=== PATIENT | female | born 1945 | race African-American/Black ===

== ENCOUNTER 2017-09-19 16:24 | Observation (INO) | payer MEDICARE, BC ==
[~2017-09-19 16:24] MED LIST: ISOVUE-370 76%-LOCM 1 ML ONE
[2017-09-19] MEDS ORDERED: Fentanyl 100 MCG/2 ML VIAL ONE (19:30)
--- NOTE | 2017-09-19 20:35 | RAD ---
THREE VIEWS LEFT ANKLE: Indication: Fall with ankle pain. Comparison: None. FINDINGS: No acute fracture or subluxation is evident. Ankle mortise and talar dome are preserved. There is dif fuse osteopenia. IMPRESSION: No acute osseous abnormality. POS: [facility]
--- NOTE | 2017-09-19 20:43 | RAD ---
TWO VIEWS LEFT FORELEG: Indication: Fall with left leg pain. FINDINGS: No acute fracture or subluxation is evident. There is partial visualization of left total knee replac ement. Soft tissues are normal appearing. IMPRESSION: No acute osseous abnormality. POS: [facility]
--- NOTE | 2017-09-19 20:46 | RAD ---
TWO VIEWS LEFT HIP: Indication: Fall on Tuesday. FINDINGS: No acute fracture or subluxation is evident. Enthesopathic changes are seen of the greater trochanter . There are vascular calcifications within the adjacent soft tissues. IMPRESSION: No acute osseous abnormality. POS: [facility]
--- NOTE | 2017-09-19 21:04 | CT ---
CT BRAIN WITHOUT CONTRAST: Indication: Fall, possible loss of consciousness. Comparison: None. FINDINGS: Skull and extracranial soft tissues appear within normal limits. No acute infarct, hemorrhage, or hyd rocephalus is present. Central pellucidum and third ventricle are midline. The mastoid air cells are paranasal sinuses are clear. IMPRESSION: No acute abnormality. POS: [facility]
--- NOTE | 2017-09-19 21:10 | CT ---
NONCONTRAST CT OF THE ABDOMEN AND PELVIS: Indication: Fall with back pain, and left hip pain. FINDINGS: Lack of IV contrast limits evaluation for solid organ injury. There are renal vascular calcifications bilaterally. There are scattered vascular calcifications along the abdominal and pelvic vasculature. Unopacified spleen, pancreas, adrenal glands, and kidneys are within normal limits. No free fluid is evident. No definite acute fracture or subluxation is evident. There is diffuse osteopenia. Scattered degenera tive and osteoarthritic change. Injection granuloma in the left gluteal region. IMPRESSION: No acute abnormality demonstrated within the limitations of this noncontrast examination. POS: [facility]ESSICA
[2017-09-19 22:51] LABS: PTT 26.6 SEC (22.9-36.1)
[2017-09-19 22:52] LABS: D-Dimer Test 0.58 *mcg/mL (0.27-0.43)
[2017-09-19 23:05] LABS: ALT (SGPT) 16 U/L (8-55); AST (SGOT) 25 U/L (5-34); Albumin 4.5 g/dL (3.4-4.8); Alkaline Phosphatase 87 U/L (40-150); Anion Gap 22 mmol/L (10-20); BUN (Urea Nitrogen) 41 mg/dL (9.8-20.1); Bilirubin, Total 1.3 mg/dL (0.2-1.2); CK (CPK) 462 U/L (29-168); Calc. Creatinine Clearance 0 mL/min (70-130); Calcium 9.8 mg/dL (7.8-10.44); Carbon Dioxide 22 mmol/L (23-31); Chloride 101 mmol/L (98-107); Estimated GFR-MDRD 43; Globulin 2.2 g/dL (2.4-3.5); Glucose 169 mg/dL (83-110); Protein, Total 6.7 g/dL (6.0-8.3); Sodium 142 mmol/L (136-145)
[2017-09-19 23:08] LABS: Band 1 % (5-11); Hemoglobin 11.8 g/dL (12.0-16.0); Lymphocytes 37 % (21-51); MDiff Complete? YES; Mean Corpuscular HGB CONC 32.7 g/dL (32.0-36.0); Mean Corpuscular Hemoglobin 30.4 pg (27.0-31.0); Mean Corpuscular Volume 93.1 fl (81.0-99.0); Mean Platelet Volume 7.5 fL (7.4-10.4); Monocytes 4 % (0-10); Neutrophil 58 % (42-75); PLT Morphology Comment Appears Adequate; Platelet Count 202 thou/uL (130-400); RBC Distribution Width 13.3 % (11.5-14.5); Red Blood Cell (RBC) Count 3.87 mill/uL (4.20-5.40); White Blood Cell (WBC) Count 10.3 thou/uL (4.8-10.8)
[2017-09-19 23:09] LABS: CKMB 4.9 ng/mL (0-6.6); Troponin I 0.021 ng/mL (< 0.028)
[2017-09-19 23:13] LABS: Potassium 2.9 mmol/L (3.5-5.1)
--- NOTE | 2017-09-19 23:31 | CT ---
CT OF THE THORAX WITH IV CONTRAST: Indication: History of chest pain after a fall. FINDINGS: No contusion, pleural effusion, or pneumothorax is evident. There are scattered vascular calcifications in the wall of the thoracic aorta and coronary arteries. There is a left chest wall port in place. Visualized upper abdomen is unremarkable. No acute osseous abnormality is evident. IMPRESSION: No acute abnormality. POS: [facility]
[2017-09-19] MEDS ORDERED: Potassium Chloride 20 MEQ/100 ML PREMIX BAG ONE (23:33)
[2017-09-20] LABS: Bicarbonate (HCO3v) 23.4 mmol/L (1.0-85.0); CO2 Tension (PvCO2) 41.2 mmHg (41.0-51.0); Calcium, Ionized 0.97 mmol/L (1.12-1.32); Hemoglobin - Calc 11.3 g/dL (12.0-18.0); O2 Tension (PvO2) 41.5 mmHg (35.0-45.0); Potassium 2.9 mmol/L (3.4-4.7); T. Carbon Dioxide 24.6 mmol/L (1.0-85.0); pH (Venous) 7.361 (7.35-7.45); vO2 Saturation-calc 74.9 % (0.0-100.0)
[2017-09-20] MEDS ORDERED: Morphine 4 MG/ML VIAL ONE ×2 (00:50→09:39)
[2017-09-20] MEDS ORDERED: Potassium Chloride 20 MEQ TAB ONE (00:50)
[2017-09-20] MEDS ORDERED: Dextrose 5% in Water 1,000 ML IV PRN (01:06)
[2017-09-20] MEDS ORDERED: HumaLOG 300 UNITS/3 ML VIAL SC PRN (01:06)
[2017-09-20] MEDS ORDERED: Dextrose 50% Abboject 50 ML SYRINGE SLOW IVP PRN (01:06)
[2017-09-20] MEDS ORDERED: Ondansetron HCl/PF 4 MG/2 ML Vial IVP PRN (01:06)
[2017-09-20] MEDS ORDERED: HYDROcodone/Acetaminophen 5/325 mg Tablet PO PRN (01:06)
[2017-09-20] MEDS ORDERED: Ondansetron ODT 4 MG TAB PO PRN (01:06)
[2017-09-20] MEDS ORDERED: Acetaminophen 325 MG TAB PO PRN (01:06)
[2017-09-20] MEDS ORDERED: Lorazepam 2 MG/ML VIAL SLOW IVP PRN (01:12)
[2017-09-20] MEDS ORDERED: Cyclobenzaprine 10 MG TAB PO PRN (01:12)
[2017-09-20] MEDS ORDERED: Morphine 4 MG/ML VIAL SLOW IVP PRN (01:13)
[2017-09-20] MEDS ORDERED: Albuterol Sulfate 2.5 mg/3 ml Neb NEB PRN (01:13)
[2017-09-20] MEDS ORDERED: Lorazepam 2 MG/ML VIAL SLOW IVP SCH (01:15)
[2017-09-20] MEDS ORDERED: Enoxaparin Sodium 30 MG/0.3 ML SYRINGE SC SCH ×2 (02:00→21:00)
[2017-09-20] MEDS ORDERED: Insulin Detemir 100 UNITS/ML 50 UNITS in Pre-Filled Syringe 1 EACH SC SCH (02:00)
[2017-09-20] MEDS ORDERED: Cyclobenzaprine 10 MG TAB PO SCH (02:00)
[2017-09-20 05:03] LABS: Anion Gap 13 mmol/L (10-20); BUN (Urea Nitrogen) 34 mg/dL (9.8-20.1); Calc. Creatinine Clearance 0 mL/min (70-130); Calcium 9.3 mg/dL (7.8-10.44); Carbon Dioxide 26 mmol/L (23-31); Chloride 102 mmol/L (98-107); Estimated GFR-MDRD 62; Glucose 165 mg/dL (83-110); Magnesium 1.7 mg/dL (1.6-2.6); Potassium 3.4 mmol/L (3.5-5.1); Sodium 138 mmol/L (136-145)
[2017-09-20 05:13] LABS: Hemoglobin 11.3 g/dL (12.0-16.0); Lymphocytes 51 % (21-51); MDiff Complete? YES; Mean Corpuscular HGB CONC 32.7 g/dL (32.0-36.0); Mean Corpuscular Hemoglobin 30.3 pg (27.0-31.0); Mean Corpuscular Volume 92.6 fl (81.0-99.0); Mean Platelet Volume 7.9 fL (7.4-10.4); Monocytes 8 % (0-10); Neutrophil 41 % (42-75); PLT Morphology Comment Appears Adequate; Platelet Count 195 thou/uL (130-400); RBC Distribution Width 13.3 % (11.5-14.5); Red Blood Cell (RBC) Count 3.73 mill/uL (4.20-5.40); White Blood Cell (WBC) Count 8.1 thou/uL (4.8-10.8)
--- NOTE | 2017-09-20 06:14 | HP ---
DATE OF ADMISSION: 09/19/2017 TIME OF SERVICE: 2355 hours. PRIMARY CARE PHYSICIAN: Shawna Christianson CHIEF COMPLAINT: "I cannot walk." HISTORY OF PRESENT ILLNESS: Ms. Davis is a 72-year-old -[place]ux[place] female with history of diabetes, CLL, hypertension, hyperlipidemia who presents to the emergency department today due to leg pain, inability to walk. She is told the story that she fell on 09/11/2017, at work. She was walking and slipped. Initially, she felt fine and was able to walk the rest of the day. She denied any loss of consciousness, syncope, and presyncope. No palpitations, chest pain or shortness of breath prior to that episode. After the fall, the next day on 09/12/2017, the patient was unable to walk. She had a severe shooting pain into her left leg and hurt too much to move. She had a headache that seemed to resolve in the next several days. She was unable to walk and lives alone and therefore stayed in bed for the next 3 days. She says she was crying out for help and hoping that someone would hear her and take her to get help. She was not near the phone, near the refrigerator, near food and water, so she was not eating or drinking. She finally got a hold of the family member and they came by to check on her, she was taken to [facility] in [place], she was evaluated and sent home with pain control and was still having problems and unable to walk. She was taken to the next day over to the [facility] in [place] where it appears the same. In review of the chart, I do not see any visits to regional clinic on those dates. In any event today, she was brought by family member to her emergency department for evaluation. She is still unable to walk. She still has severe sharp pain into her left leg. She has chronic back pain. Per the note, she complained of left lower extremity, back, left leg, and posterior neck pain. She denies any fevers or chills, no cough or sputum production, no chest pain or difficulty breathing, no diarrhea or constipation. In the emergency department, she was seen and examined, she was given 2 liters of fluids. ER doctor was concerned because her initial anion gap was elevated at 22, creatinine 1.24 and no priors in our system. We were asked to admit because of the abnormal anion gap. Further review of her labs largely appeared normal, vital signs were stable, and a VBG came back with an anion gap of only 12. I subsequently spoke with the patient. She is unable to walk and lives alone. She had a negative trauma workup with a CT scan of the abdomen and pelvis, thorax, ankle films, tib/fib films, and a brain CT and a hip x-ray. All these were unremarkable for acute osseous abnormalities. After discussion with the patient, we decided to place her in observation, the purpose to give her fluids due to her dehydration, replace her potassium which was low on presentation, and to get a rehab screen for [facility]. The patient is agreeable. PAST MEDICAL HISTORY: 1. Diabetes mellitus type 2. Unsure what her last A1c was. 2. Chronic lymphocytic leukemia managed in the [facility]. 3. Hypertension. 4. Hyperlipidemia. 5. Paroxysmal atrial fibrillation, the patient was admitted sometime recently. Workup at that time revealed atrial fibrillation with rapid ventricular response. She was placed on Eliquis for prophylaxis, however, she had so much bleeding that she eventually switched over to Xarelto. PAST SURGICAL HISTORY: 1. Port-A-Cath placement left subclavian for chronic lymphocytic leukemia treatments 2. Hysterectomy remotely. 3. Bilateral total knee arthroplasty remotely. HOME MEDICATIONS: 1. Xarelto 10 mg p.o. q.a.m. 2. Albuterol metered dose inhaler 2 puffs inhaled q.4-6h. as needed for shortness of breath. 3. Tylenol 3 p.r.n. 4. Amlodipine 5 mg p.o. daily. 5. Aspirin 81 mg daily. 6. Baclofen 10 mg is listed, but she says she does not take that. 7. Tessalon Perles is listed, but says she does not take that. 8. Budesonide 500 mg nebulized b.i.d. 9. Cilostazol 100 mg p.o. daily. 10. Catapres 0.3 mg p.o. b.i.d. 11. Diazepam 2 mg q.8 hours, which she says she does not take. 12. Hydroxyzine 25 mg p.o. t.i.d. which she is not sure if she takes, but sounds familiar and is not sure why she is taking it. 13. Takes Imbruvica for her CLL 40 mg daily. 14. Lantus 50 mg subcu at bedtime. 15. DuoNeb q.4h. 16. Lisinopril 20 mg daily. 17. Magnesium oxide 400 mg daily. 18. Metformin 500 mg p.o. q.a.m. 19. Methylprednisolone 4 mg p.o. daily. 20. Zocor 40 mg p.o. at bedtime. 21. Tramadol 50 mg p.o. q.6 hours p.r.n. 22. Multivitamin daily. 23. Nitroglycerin 0.4 mg sublingual as needed. 24. NovoLog. She says she does not take. 25. Omeprazole 40 mg daily. 26. Potassium chloride 20 mEq daily. ALLERGIES: DEMEROL. FAMILY HISTORY: Negative for history of clotting or bleeding disorder. No immune dysfunction, no other leukemias. SOCIAL HISTORY: Negative for habits x3. She lives alone, has family that periodically checks on her. REVIEW OF SYSTEMS: A 10-point review of systems was performed and negative for all other systems except as those per HPI. PHYSICAL EXAMINATION: VITAL SIGNS: Temperature 97.6, pulse 71, blood pressure 188/84, respiratory 18 , O2 sat 98% on room air. GENERAL: She is awake. She is alert. She is oriented x3. She is a well- developed, well-nourished, obese female appears to be in no acute distress. HEENT: Normocephalic, atraumatic. She is anicteric. Mucous membranes are moist. She has no visible lesion or thrush. NECK: Supple, without lymphadenopathy, JVD, or thyromegaly. Normal carotid upstrokes. CHEST: Clear. No wheezes, no rales, no rhonchi. No prolonged expiratory phase. CARDIOVASCULAR: She is normal cardiac and regular. She has a normal S1 and S2. I do not appreciate murmurs. ABDOMEN: Obese. It is nontender, nondistended, no mass, no organomegaly. EXTREMITIES: No cyanosis, clubbing, with trace pedal edema. MUSCULOSKELETAL: Large joints, hips, knees, elbows and ankles and wrists appear to be normal to inspection. She has no palpable effusions. She has no inflammation. She is a rotated 3/[address] way to her left side. She said it is more comfortable. Palpation of her lumbosacral spine made her left lower leg pain worse. Muscles did appear to be tense and tender. NEUROLOGIC: Cranial nerves II-XII grossly intact. She has normal speech pattern. She has a 3/5 strength in her arms and right leg. She does not want to move her left leg because it makes it hurt too much to move. She will not lay flat because it hurts more in her left leg. There is no sensory defects. She denies her leg being numb. SKIN: Otherwise, warm, moist and well perfused. She has ecchymosis on several areas from easy bruising from her Xarelto. LABORATORY DATA: Sodium 142, potassium 2.9, chloride 101, bicarb 22, BUN 41, creatinine 1.24. I do not have a prior value. Magnesium was borderline normal at 1.6. Liver functions were completely normal. Glucose was 169 and her calcium was 9.8. CK elevated at 462, CK-MB normal at 4.9, troponin I 0.21 and BNP of 15.1. Repeat potassium via stat VBG was stable at 2.9. She got 60 mEq in the ER. RADIOGRAPHIC STUDIES: She had a hip x-ray, ankle x-ray and tib/fib x-ray on the left, a CT abdomen and pelvis without contrast, brain CT without contrast and chest CT without contrast that within limitations of the noncontrast study were normal. ASSESSMENT AND PLAN: 1. Fall from the same level with resultant injury. 2. Radicular pain to the left leg. 3. Possible lumbosacral injury. 4. Diabetes mellitus type 2. We will continue home medications, we will check hemoglobin A1c in the morning. Sliding scale insulin been ordered. 5. Chronic lymphocytic leukemia. Once we confirm the name of her medications may get that restarted. 6. Hypertension, currently uncontrolled. The patient has not been able to make it to her medications. Restart her home medications and watch very closely. 7. Hyperlipidemia. I will continue her home medications. 8. Asthma. She takes nebulizer treatments, continued. 9. Hypokalemia: Likely due to decreased intake. We will get her potassium levels repleted and recheck in the morning. Magnesium was borderline normal, so we will not add any at this point. 10. Possible chronic kidney disease 3, creatinine 1.24, estimated GFR around 43. Unsure what her baseline is. I have no other previous labs. 11. Physical deconditioning. The patient really has not walked in about a week. I have ordered a rehab screen, I have also ordered PT and OT evaluations. We will see if she qualifies for going to [facility]. DESTINEY
[2017-09-20] MEDS: Budesonide 0.5 MG/2 ML NEB INH SCH ×2 (08:29→18:53)
[2017-09-20] MEDS ORDERED: Acetaminophen 325 MG TAB ONE (08:38)
--- NOTE | 2017-09-20 11:29 | MRI ---
MRI LUMBAR SPINE WITH AND WITHOUT CONTRAST: INDICATIONS: Left hip and left leg pain after a fall. TECHNIQUE: Multiplanar, multisequence MR images were obtained of the lumbar spine with and without contrast, and 8 mL of MultiHance was utilized for the exam. FINDINGS: The conus was seen to terminate at the expected T1 vertebral level. At L5-S1, there is a broad-based bulge with facet joint degenerative change inducing moderate to danny re bilateral neural foraminal narrowing. At L4-L5, there is advanced facet joint degenerative change, grade 1 anterolisthesis, and a broad-bas ed bulge. There is mild to moderate right neural foraminal narrowing. At L3-L4, there is a mild broad-based bulge with mild bilateral neural foraminal narrowing. At L2-L3, there is no appreciable central canal or neural foraminal narrowing. At L1-L2, there is no appreciable central canal or neural foraminal narrowing. At T12-L1, there is no appreciable central canal or neural foraminal narrowing. At T11-T12, there is a mild broad-based bulge causing mild central canal narrowing and mild bilateral neural foraminal narrowing. No definite abnormal enhancement is demonstrated. There is unequal fat saturation involving the supe rior aspect of the field of view on the post contrast sagittal T1 fat-sat images. The visualized ret roperitoneum is unremarkable. IMPRESSION: 1. Multilevel spondylosis of the lumbar spine with moderate to severe bilateral neural foraminal zenon rowing at L5-S1. 2. There is mild to moderate right neural foraminal narrowing at L4-L5. 3. Mild bilateral neural foraminal narrowing and central canal narrowing at T11-T12. POS: [facility]
[2017-09-20] MEDS ORDERED: Gadobenate Dimeglumine 529 MG/1 ML (20ML VIAL) ONE (11:48)
[2017-09-20] MEDS ORDERED: Potassium Chloride 20 MEQ TAB PO SCH (12:30)
--- NOTE | 2017-09-20 12:35 | PDOC.PN ---
- Subjective Encounter Start Date: 09/20/17 Encounter Start Time: 12:32 left leg weak and c/o pain over trhasher area and lower back no n/v no f/c no sob - Objective Resuscitation Status: Resuscitation Status FULL:Full Resuscitation MAR Reviewed: Yes Vital Signs & Weight: Vital Signs (12 hours) Pulse BP 09/20/17 09:06 102 H 160/47 H Result Diagrams: 09/20/17 04:30 09/20/17 04:30 Additional Labs: Accuchecks 09/20/17 08:18 POC Glucose 112 H Phys Exam - Physical Examination Constitutional: NAD HEENT: PERRLA Neck: no JVD Respiratory: no wheezing Cardiovascular: no significant murmur Gastrointestinal: no distention Musculoskeletal: pulses present lt leg weak and tender Neurological: moves all 4 limbs Psychiatric: A&O x 3 Dx/Plan (1) Left leg pain Code(s): M79.605 - PAIN IN LEFT LEG Status: Acute (2) Rhabdomyolysis Code(s): M62.82 - RHABDOMYOLYSIS Status: Acute (3) Afib Code(s): I48.91 - UNSPECIFIED ATRIAL FIBRILLATION Status: Chronic (4) Hypokalemia Code(s): E87.6 - HYPOKALEMIA Status: Acute (5) Diabetes mellitus Code(s): E11.9 - TYPE 2 DIABETES MELLITUS WITHOUT COMPLICATIONS Status: Acute (6) CLL (chronic lymphocytic leukemia) Code(s): C91.10 - CHRONIC LYMPHOCYTIC LEUK OF B-CELL TYPE NOT ACHIEVE REMIS Status: Acute (7) HTN (hypertension) Code(s): I10 - ESSENTIAL (PRIMARY) HYPERTENSION Status: Acute (8) Back pain Code(s): M54.9 - DORSALGIA, UNSPECIFIED Status: Acute Comment: mri shows severe neural foraminal narrowing at l5-s1 - Plan * consult neurology and neuro surg and f/u rec's * monitor ck * pain control * pt * rehab eval pending
[2017-09-20] MEDS: Amlodipine 10 MG TAB PO SCH (17:43)
[2017-09-20] MEDS: cloNIDine 0.3 MG TAB PO SCH ×2 (17:44→20:43)
[2017-09-20] MEDS: methylPREDNISolone 4 mg Tablet PO SCH (17:44)
[2017-09-20] MEDS: Cilostazol 100 MG TAB PO SCH (17:44)
[2017-09-20] MEDS: Docusate 100 MG CAP PO SCH ×2 (17:44→20:43)
[2017-09-20] MEDS: Rivaroxaban 10 MG TAB PO SCH (17:45)
[2017-09-20] MEDS: Sodium Chloride 0.9% 1,000 ML IV SCH ×3 (17:46→20:46)
[2017-09-20] MEDS: Insulin Detemir 100 UNITS/ML 50 UNITS in Pre-Filled Syringe 1 EACH SC SCH (21:55)
[2017-09-21] MEDS: HYDROcodone/Acetaminophen 10/325 mg Tablet PO PRN ×3 (02:22→16:20)
[2017-09-21 06:40] LABS: Albumin 3.6 g/dL (3.4-4.8); Anion Gap 13 mmol/L (10-20); BUN (Urea Nitrogen) 19 mg/dL (9.8-20.1); BUN/Creatinine Ratio 24.68; CK (CPK) 154 U/L (29-168); Calc. Creatinine Clearance 88 mL/min (70-130); Carbon Dioxide 23 mmol/L (23-31); Chloride 107 mmol/L (98-107); Estimated GFR-MDRD 74; Glucose 77 mg/dL (83-110); Potassium 3.1 mmol/L (3.5-5.1); Sodium 140 mmol/L (136-145)
[2017-09-21 06:42] LABS: Phosphorus 1.8 mg/dL (2.3-4.7)
[2017-09-21] MEDS: Budesonide 0.5 MG/2 ML NEB INH SCH ×2 (07:55→18:38)
[2017-09-21] MEDS ORDERED: Potassium Phosphate 15 MMOL in Sodium Chloride 0.9% 250 ML 250 ML IVPB SCH (09:30)
[2017-09-21] MEDS: Amlodipine 10 MG TAB PO SCH (10:45)
[2017-09-21] MEDS: cloNIDine 0.3 MG TAB PO SCH ×2 (10:45→22:12)
[2017-09-21] MEDS: Cilostazol 100 MG TAB PO SCH (10:45)
[2017-09-21] MEDS: Rivaroxaban 10 MG TAB PO SCH (10:46)
[2017-09-21] MEDS: methylPREDNISolone 4 mg Tablet PO SCH (10:46)
[2017-09-21] MEDS: Docusate 100 MG CAP PO SCH ×2 (10:46→22:12)
[2017-09-21 13:07] VITALS: BMI 31.8
--- NOTE | 2017-09-21 14:35 | PDOC.PN ---
- Subjective Encounter Start Date: 09/21/17 Encounter Start Time: 14:33 pain better in the lt thrasher still has no strength in left leg no n/v no f/c - Objective Resuscitation Status: Resuscitation Status FULL:Full Resuscitation MAR Reviewed: Yes Vital Signs & Weight: Vital Signs (12 hours) Temp Pulse Resp BP Pulse Ox 09/21/17 12:00 97.7 F 89 16 173/81 H 100 09/21/17 08:04 97.8 F 90 16 09/21/17 07:54 90 16 09/21/17 04:00 97.8 F 71 15 133/60 100 Weight Admit Weight 185 lb 4.8 oz Weight 185 lb 4.8 oz I&O: 09/20/17 09/21/17 09/22/17 06:59 06:59 06:59 Intake Total 1180 Output Total 1700 Balance -520 Result Diagrams: 09/20/17 04:30 09/21/17 05:44 Additional Labs: Accuchecks 09/21/17 09/21/17 09/21/17 12:12 06:27 05:57 POC Glucose 153 H 81 69 L 09/20/17 09/20/17 19:51 16:10 POC Glucose 227 H 298 H Phys Exam - Physical Examination Constitutional: NAD HEENT: PERRLA Neck: no JVD Respiratory: no wheezing Cardiovascular: no significant murmur Gastrointestinal: non-tender Musculoskeletal: pulses present tenderness over thrasher area Neurological: moves all 4 limbs Psychiatric: A&O x 3 Dx/Plan (1) Left leg pain Code(s): M79.605 - PAIN IN LEFT LEG Status: Acute (2) Rhabdomyolysis Code(s): M62.82 - RHABDOMYOLYSIS Status: Acute (3) Afib Code(s): I48.91 - UNSPECIFIED ATRIAL FIBRILLATION Status: Chronic (4) Hypokalemia Code(s): E87.6 - HYPOKALEMIA Status: Acute (5) Diabetes mellitus Code(s): E11.9 - TYPE 2 DIABETES MELLITUS WITHOUT COMPLICATIONS Status: Acute (6) CLL (chronic lymphocytic leukemia) Code(s): C91.10 - CHRONIC LYMPHOCYTIC LEUK OF B-CELL TYPE NOT ACHIEVE REMIS Status: Acute (7) HTN (hypertension) Code(s): I10 - ESSENTIAL (PRIMARY) HYPERTENSION Status: Acute (8) Back pain Code(s): M54.9 - DORSALGIA, UNSPECIFIED Status: Acute Comment: mri shows severe neural foraminal narrowing at l5-s1 - Plan * replace phos and k * awaiting neuro rec's * rehab on d/c
[2017-09-21] MEDS ORDERED: traMADol HCl 50 MG TAB PO PRN (14:49)
[2017-09-21] MEDS ORDERED: Morphine 4 MG/ML VIAL SLOW IVP PRN (14:49)
--- NOTE | 2017-09-21 20:17 | CON ---
DATE OF CONSULTATION: 09/21/2017 REFERRING PROVIDER: Dr. Ginger Winkler. REASON FOR CONSULTATION: Left lower extremity weakness. HISTORY OF PRESENT ILLNESS: Ms. Davis is a pleasant 72-year-old -[place] female who has been consulted for evaluation of left lower extremity weakness. The patient reports that she works in a assisted with [employer], she was putting something in microwave and when she turned around, she slipped and fell. There was nothing to hold on to break her fall and when she fell, she landed on her left s ni. She bruised up back of her left shoulder and had bruising on the left hip and left lower extrem ity. She went home, was able to walk okay without any problems. She had some mild pain, but it was tolerable. After she went home, she developed started getting increasing pain in the left lower extr emity to the point that she was not able to get up and walk. She tried to call for help, but there w as no one around as she lives alone. She laid in bed for 2-3 days and finally she was able to call h er family member and asked them to call to get some help. She was brought to [facility] due to this left lower extremity pain and weakness. She states that her pain has been better sinc e she is being here, although is not completely resolved. She notes that her weakness is due to more of pain rather than the true weakness. She does have a history of lower back pain and was recently told that she has "arthritis" in her lower back. She had epidural steroid injection done for that, w carrillo helped some with her lower back but it has not been helpful over the past few weeks. She notes that the pain for her lower back was radiating to the left hip and into the left lower extremity on a nterolateral aspect of the thigh and lower leg. She notes that her recent pain is in the similar loc ation, but the intensity is much severe than she had in the past. PAST MEDICAL HISTORY: Significant for hypertension, diabetes, CLL, hyperlipidemia, paroxysmal atrial fibrillation. PAST SURGICAL HISTORY: Significant for hysterectomy, bilateral total knee replacement, and left subc lavian Port-A-Cath placement. SOCIAL HISTORY: She denies smoking, alcohol use, or illicit drug use. She lives alone and currently works at a assisted with [employer]. FAMILY HISTORY: Noncontributory. CURRENT MEDICATIONS: Please review MAR. ALLERGIES: Include DEMEROL. REVIEW OF SYSTEMS: As mentioned above in the HPI, otherwise negative. PHYSICAL EXAMINATION: VITAL SIGNS: Blood pressure of 122/66, pulse of 95, temperature of 99, respirations of 17, and O2 sa ts of 100% on room air. GENERAL: Well-developed, well-nourished -[place] female, in no apparent distress. RESPIRATORY: Clear to auscultation bilaterally. CARDIOVASCULAR: Regular rate and rhythm. NEUROLOGIC: Mental status: The patient is awake, alert, oriented x3. Speech and language: Fluent speech. Cranial nerves: Pupils are 3 mm and reactive. Visual grimes are intact. Extraocular muscl es are intact. No nystagmus noted. Face is symmetric. Tongue and uvula are midline. Motor exam sh owed normal tone and bulk with 5/5 strength in both upper and lower extremities. She is very tender to palpation on the anterolateral aspect of the left lower leg and left hip. There is a restricted r maldonado of motion due to pain. Deep tendon reflexes 1+ reflex in both upper and lower extremities. Bab inski: Plantar responses flexion bilaterally. LABORATORY DATA: Labs are reviewed, which included CBC, CMP, which is significant for hemoglobin 11. 3, hematocrit of 34.6, potassium of 3.1, phosphorus of 1.8, magnesium of 1.5, otherwise unremarkable. IMAGING STUDIES: MRI of the lumbar spine without contrast was reviewed, which showed mild to moderat e multilevel spondylosis with severe bilateral neural foraminal narrowing at L5-S1 and moderate right neural foraminal narrowing at L4-5, otherwise unremarkable. Head CT was negative for acute intracra nial abnormality. IMPRESSION: 1. Left lower extremity pain. 2. Antalgic weakness. ASSESSMENT AND PLAN: Ms. Davis is a pleasant 72-year-old -[place] female, who presented with after a fall resulting in posterior aspect of the left shoulder bruising as well as pain in the left lower extremity. Her weakness in the left lower extremity is likely antalgic weakness. I have revi ewed her MRI L-spine likely not causing any of her current ongoing symptoms. At this time, I will re commend continuing current medical management. She would benefit from rehab therapy. I have advised her to follow up with her pain management doctor who provided epidural injection in the past for con tinued left hip pain with radiation to left lower extremity. The patient is okay to be discharged to a rehab facility from my standpoint. No further neurological workup needed from my standpoint. Thank you for your consultation.
[2017-09-21] MEDS: Insulin Detemir 100 UNITS/ML 50 UNITS in Pre-Filled Syringe 1 EACH SC SCH (22:13)
[2017-09-22 06:55] LABS: Albumin 3.4 g/dL (3.4-4.8); Anion Gap 14 mmol/L (10-20); BUN (Urea Nitrogen) 16 mg/dL (9.8-20.1); BUN/Creatinine Ratio 20.78; CK (CPK) 77 U/L (29-168); Calc. Creatinine Clearance 88 mL/min (70-130); Calcium 9.3 mg/dL (7.8-10.44); Carbon Dioxide 25 mmol/L (23-31); Chloride 107 mmol/L (98-107); Estimated GFR-MDRD 74; Glucose 52 mg/dL (83-110); Magnesium 1.6 mg/dL (1.6-2.6); Phosphorus 2.3 mg/dL (2.3-4.7); Potassium 3.4 mmol/L (3.5-5.1); Sodium 143 mmol/L (136-145)
[2017-09-22] MEDS: Budesonide 0.5 MG/2 ML NEB INH SCH (07:49)
[2017-09-22] MEDS: HYDROcodone/Acetaminophen 10/325 mg Tablet PO PRN (09:05)
[2017-09-22] MEDS: Rivaroxaban 10 MG TAB PO SCH (09:06)
[2017-09-22] MEDS: Cilostazol 100 MG TAB PO SCH (09:06)
[2017-09-22] MEDS: Amlodipine 10 MG TAB PO SCH (09:06)
[2017-09-22] MEDS: Docusate 100 MG CAP PO SCH (09:07)
[2017-09-22] MEDS: methylPREDNISolone 4 mg Tablet PO SCH (09:07)
[2017-09-22] MEDS: cloNIDine 0.3 MG TAB PO SCH (09:07)
--- NOTE | 2017-09-22 10:36 | PDOC.PN ---
- Subjective Encounter Start Date: 09/22/17 Encounter Start Time: 10:35 Patient seen and examined. No new complaints. No overnight events - Objective Resuscitation Status: Resuscitation Status FULL:Full Resuscitation MAR Reviewed: Yes Vital Signs & Weight: Vital Signs (12 hours) Temp Pulse Resp BP Pulse Ox 09/22/17 08:45 98.6 F 98 20 139/60 96 09/22/17 07:49 98 20 99 09/22/17 07:46 98 20 99 09/22/17 00:33 68 16 99 Weight Admit Weight 185 lb 4.8 oz Weight 189 lb 14.4 oz I&O: 09/21/17 09/22/17 09/23/17 06:59 06:59 06:59 Intake Total 1180 1800 Output Total 1700 1790 Balance -520 10 Result Diagrams: 09/20/17 04:30 09/22/17 05:31 Additional Labs: Accuchecks 09/22/17 09/22/17 09/22/17 09:15 06:59 06:16 POC Glucose 207 H 66 L 136 H 09/21/17 09/21/17 09/21/17 19:52 17:09 12:12 POC Glucose 344 H 203 H 153 H Phys Exam - Physical Examination Constitutional: NAD HEENT: PERRLA Neck: no JVD Respiratory: no wheezing Cardiovascular: no significant murmur Gastrointestinal: non-tender Musculoskeletal: pulses present tender over thrasher area of left leg Neurological: normal sensation Psychiatric: A&O x 3 Dx/Plan (1) Left leg pain Code(s): M79.605 - PAIN IN LEFT LEG Status: Acute (2) Rhabdomyolysis Code(s): M62.82 - RHABDOMYOLYSIS Status: Acute (3) Afib Code(s): I48.91 - UNSPECIFIED ATRIAL FIBRILLATION Status: Chronic (4) Hypokalemia Code(s): E87.6 - HYPOKALEMIA Status: Acute (5) Diabetes mellitus Code(s): E11.9 - TYPE 2 DIABETES MELLITUS WITHOUT COMPLICATIONS Status: Acute (6) CLL (chronic lymphocytic leukemia) Code(s): C91.10 - CHRONIC LYMPHOCYTIC LEUK OF B-CELL TYPE NOT ACHIEVE REMIS Status: Acute (7) HTN (hypertension) Code(s): I10 - ESSENTIAL (PRIMARY) HYPERTENSION Status: Acute (8) Back pain Code(s): M54.9 - DORSALGIA, UNSPECIFIED Status: Acute Comment: mri shows severe neural foraminal narrowing at l5-s1 - Plan * doing good * d/c rehab * f/u with pcp and pain mx as out pt
[2017-09-22] MEDS ORDERED: Potassium Chloride 20 MEQ TAB PO SCH (11:15)
[2017-09-22 11:56] VITALS: TEMP 99
[2017-09-22 13:06] VITALS: BP 143/87
--- NOTE | 2017-09-22 22:19 | DIS ---
DATE OF ADMISSION: 09/19/2017 DATE OF DISCHARGE: 09/22/2017 DISCHARGE DIAGNOSES: 1. Left lower leg pain secondary to fall and antalgic gait. 2. Diabetes mellitus, stable. 3. Chronic lymphocytic leukemia, stable. 4. Hypertension, stable. 5. Hyperlipidemia, stable. 6. Paroxysmal atrial fibrillation, stable. 7. Elevated CK, resolved. 8. Foraminal L5-S1, foraminal narrowing, outpatient follow up with Neurosurgery. 9. Patient's hypertension is stable. DISCHARGE MEDICATIONS: Include all home medications plus tramadol 50 mg p.o. q.8 hours p.r.n. for pa in. DISPOSITION: Rehabilitation. CONSULTANTS: Neurosurgery and Neurology. BRIEF HOSPITAL COURSE: This is a 72-year-old pleasant lady, who came into the hospital with left low er leg pain and left shoulder pain because of fall. Please refer to the admitting physician's H&P fo r further details. The patient had multiple x-rays and CT scan of the abdomen and pelvis and thorax all were negative and CT scan of the brain was negative. The patient was found to have a high CK, fo r which resolved with IV hydration. Neurology evaluated the patient. They thought it was possibly j ust muscle strain and secondary to the antalgic gait. They recommended physical therapy and pain man agement for that. For the radiculopathy, they recommended outpatient followup with pain management a nd possible steroid injections. Neurosurgery agreed with this and they also said that they will foll ow the patient outpatient. Patient right now is medically stable to be discharged to rehab and is as ked to follow up with PCP and paint stripper as an outpatient. She understands all this. She is asked to come back to the emergency room in case symptoms recur. Total time for this discharge took 35 minutes.
--- NOTE | 2017-10-29 20:17 | EKG ---
Test Reason : Blood Pressure : / mmHG Vent. Rate : 099 BPM Atrial Rate : 099 BPM P-R Int : 136 ms QRS Dur : 102 ms QT Int : 372 ms P-R-T Axes : 045 -13 040 degrees QTc Int : 477 ms Normal sinus rhythm Nonspecific T wave abnormality Abnormal ECG Confirmed by TO CHRISTOS Liang ([id number]), newspaper editor ALDAIR JOHNSTON ([id number]) on 10/29/2017 8:17:12 PM Referred By: Confirmed By:CHRISTOS MCNAMARA M.D.
== END 2017-09-22 12:55 ==
LOC: ERS 16:24 → ERHOLD 23:45 → 2NO 09-20 16:47
PROVIDERS: ADMIT Internal Medicine Infectious Disease; ATTEND Internal Medicine Infectious Disease
DX: M79.605 Pain in left leg (principal); R26.2 Difficulty in walking, not elsewhere classified; R74.8 Abnormal levels of other serum enzymes; E11.9 Type 2 diabetes mellitus without complications; M48.07 Spinal stenosis, lumbosacral region; C91.10 Chronic lymphocytic leukemia of B-cell type not having achieved remission; I10 Essential (primary) hypertension; E78.5 Hyperlipidemia, unspecified; J45.909 Unspecified asthma, uncomplicated; E87.6 Hypokalemia; R53.81 Other malaise; I48.0 Paroxysmal atrial fibrillation; Z88.8 Allergy status to other drugs, medicaments and biological substances; Z79.01 Long term (current) use of anticoagulants; Z79.82 Long term (current) use of aspirin; Z79.4 Long term (current) use of insulin; Z90.710 Acquired absence of both cervix and uterus; Z98.890 Other specified postprocedural states; W18.39XA Other fall on same level, initial encounter
CPT/HCPCS: 70450; 71260; 72158; 73502; 73590; 73610; 74176; 80048; 80053; 80069 ×2; 82330; 82435; 82550 ×3; 82553; 82803; 82962 ×3; 83735 ×4; 83880; 84132; 84295; 84484; 85014; 85025 ×2; 85379; 85730; 93005; 94640 ×4; 96361 ×3; 96365; 96366 ×2; 96367; 96375; 96376 ×2; 97110; 97116 ×2; 97139; 97530; 99285; G0378 ×2; G8978; G8979; G8987; G8988; 36415; 36416; A4216; A9579; J1642; J1650; J1815; J2270; J3010; J3480; J7050; J7620; J7626

== ENCOUNTER 2018-05-16 06:51 | Day surgery (SDC) | payer MEDICARE, BC ==
[2018-05-15 11:19] VITALS: BMI 30.6
--- NOTE | 2018-05-16 07:40 | HP ---
SHORT STAY HISTORY AND PHYSICAL DATE OF ADMISSION: 05/16/2018 HISTORY OF PRESENT ILLNESS: This is a 73-year-old Latin-[place] female with complaint of abdominal pain and nausea. The patient has had symptoms over the last several weeks. Abdominal pain is over t he epigastric area. The pain is sharp and localized. She has no vomiting. She has only history of intermittent diarrhea recently. The patient comes in with abdominal pain, nausea, and also history o f dysphagia. The patient had EGD and dilation done with a few months ago. The pain comes in for EGD because of above reason. ALLERGIES: DEMEROL. SOCIAL HISTORY: The patient does not smoke or drink alcohol. MEDICAL ILLNESSES: 1. Hypertension. 2. Hyperlipidemia. 3. Diabetes. 4. Lymphoma in 2009, status post chemotherapy and radiation. 5. Chronic lymphocytic leukemia in 2013. 6. Appendectomy. 7. Hysterectomy. PHYSICAL EXAMINATION: VITAL SIGNS: Pulse is 70, blood pressure 130/80. HEENT: Conjunctivae clear. CARDIOVASCULAR SYSTEM: First and second heart sounds normal. LUNGS: Clear to auscultation. ABDOMEN: Soft to palpate. No organomegaly. Abdomen is tender in epigastric area. There is no rebo und or guarding. ADMITTING DIAGNOSES: Abdominal pain, nausea, and dysphagia. PLAN: EGD and possible dilation.
[2018-05-16] MEDS ORDERED: Sodium Chloride 0.9% 10 ML ONE (09:06)
[2018-05-16] MEDS ORDERED: Lidocaine 1% PF 5 ML VIAL ONE (11:03)
[2018-05-16] MEDS ORDERED: PROPOFOL 200 MG/20 ML VIAL ONE (11:03)
--- NOTE | 2018-05-16 11:06 | OP ---
DATE OF PROCEDURE: 05/16/2018 SURGEON: Azar Rebolledo M.D. PROCEDURE: 1. Esophagogastroduodenoscopy with biopsy. 2. Esophageal dilation with Marc sizes 50 and 52 Armenian in diameter. PREOPERATIVE DIAGNOSES: Abdominal pain, nausea, dysphagia. POSTOPERATIVE DIAGNOSES: 1. Normal esophageal mucosa and normal vocal cords. 2. No definite esophageal narrowing seen and scope was advanced in the esophagus without difficulty . 3. Antral gastritis and ulceration of the gastric antrum. PROCEDURE IN DETAIL: The patient was placed on her left lateral position and was given sedation by A nesthesia Department. A [employer]ax video gastroscope under direct vision was passed down the oropharynx, past the GE junction, into the stomach and subsequently into the descending duodenum. The vocal cor ds appeared healthy. The esophageal mucosa appears normal throughout the esophagus. The GE junction , no pathology seen. The esophageal lumen appears to be open as the scope advanced into the stomach without difficulty. Retroflexion failed to show any pathology in the fundus or cardia. She did have some gastritis. The gastric body, no pathology seen. The gastric antrum shows multiple erythematou s spots with an ulceration. The scope advanced into the duodenal bulb, descending duodenum. No path ology seen. Biopsies obtained from the gastric antrum and gastric body. The stomach was decompresse d and the scope removed. Because of history of dysphagia, it was elected to do a dilation with Malon ey size 50 and 52 Armenian. Both were passed without any resistance. Post-dilation, the scope advance d back in the stomach and there was friability and mild oozing of blood noted at the GE junction jayro cative of successful dilation. The stomach was decompressed and the scope removed. DISCHARGE PLANNING: This is a 73-year-old with abdominal pain and nausea over the l ast several weeks. She also has a history of dysphagia to solid food. She underwent EGD with biopsy and dilation. RECOMMENDATIONS: 1. Start the patient on omeprazole 40 once a day. 2. I will review the abdominal sonogram and make further recommendations.
== END 2018-05-16 09:40 | disposition home or self-care (01) ==
LOC: SDC 06:51
PROVIDERS: ATTEND Internal Medicine Gastroenterology
PROC: 0DB68ZX Excision of Stomach, Via Natural or Artificial Opening Endoscopic, Diagnostic (ICD-10-PCS; principal; 2018-05-16)
PROC: 0D757ZZ Dilation of Esophagus, Via Natural or Artificial Opening (ICD-10-PCS; 2018-05-16)
DX: K25.9 Gastric ulcer, unspecified as acute or chronic, without hemorrhage or perforation (principal); R13.10 Dysphagia, unspecified; K29.70 Gastritis, unspecified, without bleeding; R10.13 Epigastric pain; I10 Essential (primary) hypertension; E11.9 Type 2 diabetes mellitus without complications; E78.5 Hyperlipidemia, unspecified; Z88.8 Allergy status to other drugs, medicaments and biological substances
CPT/HCPCS: 88305; 88312; J1642; J2001; J2704

== ENCOUNTER → 2019-02-13 | Day surgery (SDC) | payer MEDICARE, BC | LOC: ENDO/OP 07:45 | PROVIDERS: ATTEND Internal Medicine Gastroenterology | DX: R13.10 Dysphagia, unspecified (principal); Z88.5 Allergy status to narcotic agent | CPT/HCPCS: 91010 ==